=== PATIENT | male | born 1975 | race Two or more races ===

== ENCOUNTER 2025-04-28 01:15 | Emergency (ER) | payer MEDICAID, SELFPAY ==
[2025-04-28 01:16] VITALS: BMI 26.9
--- NOTE | 2025-04-28 01:23 | EKG_ITS ---
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1975 Requested By: Saurabh Hennessy Order Number: [id number] Reading MD: Saurabh Hennessy Measurements Intervals [place] Rate: 111 P: 50 NC: 156 QRS: -42 QRSD: 86 T: 31 QT: 309 QTc: 421 Interpretive Statements SINUS TACHYCARDIA POSSIBLE LEFT ATRIAL ENLARGEMENT [-0.1mV P-WAVE IN V1/V2] LOW QRS VOLTAGE IN PRECORDIAL LEADS [QRS DEFLECTION < 1.0 mV IN CHEST LEADS] INFERIOR MYOCARDIAL INFARCTION , OF INDETERMINATE AGE [40+ ms Q WAVE AND/OR ST/T ABNORMALITY IN II/aVF] Compared to ECG 04/09/2022 07:32:30 Low QRS voltage now present Myocardial infarct finding now present Sinus rhythm no longer present /store/S0/[id number].pdf
[2025-04-28 01:26] VITALS: BP 160/98; PULSE 107; RESP 18; TEMP 36.9; O2SAT 96
--- NOTE | 2025-04-28 01:42 | XR_ITS ---
Upright PA chest film on 04/28/2025 at 1:42 a.m. Comparison study 04/09/2022. CLINICAL HISTORY: 3 days of chest pain and shortness of breath FINDINGS: The heart and mediastinum and hilar regions appear normal. Both lungs are clear there is no pleural fluid seen. I do not see any abnormalities in the bony thorax. IMPRESSION: Normal chest for
--- NOTE | 2025-04-28 01:45 | PD.EDCHEST ---
ED Chest Pain RME/HPI General Chief Complaint: Chest Pain Stated Complaint: CHEST PAIN Time Seen by Provider: 04/28/25 01:42 Arrival date/time: 04/28/25 01:15 49M with history of HTN, DM, and alcohol/drug use presents to ED with 3 days of CP and SOB. Patient denies URI symptoms. Patient took some Viagra to have personal relations with . Limitations: no limitations Related Data Home Medications ?Medication ?Instructions ?Recorded ?Confirmed amlodipine 5 mg tablet 5 mg PO 1XD 01/18/22 01/18/22 atorvastatin 80 mg tablet 1 tab PO 1XD 01/18/22 01/18/22 empagliflozin 12.5 mg-metformin 1 tab PO 2XD 01/18/22 01/18/22 1,000 mg tablet (Synjardy) insulin glargine-yfgn 100 unit/mL 65 ea subcut 1XD 01/18/22 01/18/22 (3 mL) subcutaneous pen insulin lispro 100 unit/mL 20 ea subcut 3XD 01/18/22 01/18/22 subcutaneous pen (Humalog KwikPen (U-100) Insulin) olmesartan 20 mg tablet 20 mg PO 1XD 01/18/22 01/18/22 Previous Rx's ?Medication ?Instructions ?Recorded fluticasone propionate 50 50 mcg intranasal Q12H #18.2 grams 11/29/18 mcg/actuation nasal spray,suspension (Flonase Allergy Relief) albuterol sulfate 90 mcg/actuation 2 puff inhalation Q4H #6.7 grams 01/13/19 aerosol inhaler (Proventil HFA) cyclobenzaprine 5 mg tablet 5 mg PO QHSPRN PRN muscle spasm 06/27/22 #10 tabs ibuprofen 600 mg tablet 600 mg PO TID PRN pain #30 tabs 06/27/22 Allergies Allergy/AdvReac Type Severity Reaction Status Date / Time No Known Allergies Allergy Verified 04/28/25 01:22 Review of Systems Review of Systems Systems Reviewed: All systems reviewed, normal except as documented Cardiovascular Cardiovascular: Reports as per HPI, Reports chest pain and Reports dyspnea Respiratory Respiratory: Reports dyspnea Past Medical History Past Medical History CARDIAC: Positive Cardiac Disorders and Hypertension; Negative Congestive Heart Failure RESPIRATORY: Positive Asthma; Negative Chronic Obstructive Pulmonary Disease (COPD) GENITOURINARY: Negative Renal Disease ENDOCRINE: Positive Endocrine Disorders and Diabetes Mellitus Type 2; Negative Diabetes Mellitus Type 1 HEMATOLOGIC: Negative Sickle Cell Disease Family History FAMILY HISTORY: Negative Family Cancer Social History SMOKING STATUS: Current every day smoker ED Exam General Limitations: Present no limitations General appearance: Present alert and in no apparent distress Head Head exam: Present atraumatic Neck Neck exam: Present normal inspection, full ROM and trachea midline Chest Chest inspection: Present normal inspection and symmetric chest wall rise Respiratory Respiratory exam: Present normal lung sounds bilaterally Cardiovascular Cardiovascular exam: Present regular rate, normal rhythm and normal heart sounds Neurological Exam Neurological exam: Present alert and oriented X3 Psychiatric Psychiatric exam: Present normal affect and normal mood Skin Skin exam: Present warm, dry, intact and normal color Course Quality Measures none Orders Category Date Time Status EKG (ED ONLY) *Do not use* NOW Care 04/28/25 01:23 Completed EKG (ED Only) Stat Exams 04/28/25 01:23 Draft XR chest 1V portable Stat Exams 04/28/25 01:42 Taken CBC Stat Lab 04/28/25 02:11 Completed Comprehensive Metabolic Panel Stat Lab 04/28/25 02:11 Completed D-Dimer Stat Lab 04/28/25 02:11 Completed Troponin I Stat Lab 04/28/25 02:11 Completed Troponin I Stat Lab 04/28/25 05:00 Completed Aspirin Med 04/28/25 01:43 Discontinued 325 mg PO X1 ONE Insulin Regular Med 04/28/25 03:29 Discontinued 10 unit SC X1 ONE Vital Signs Vital signs: Vital Signs Temperature 98.5 F 04/28/25 01:26 Pulse Rate 107 H 04/28/25 01:26 Respiratory Rate 18 04/28/25 01:26 Blood Pressure 160/98 H 04/28/25 01:26 Pulse Oximetry (%) 96 04/28/25 01:26 Oxygen Delivery Method Room Air 04/28/25 01:26 O2 at 96% on RA and WNLs Chest Pain MDM Narrative MDM Narrative:: 49M with history of HTN, DM, and alcohol/drug use presents to ED with 3 days of CP and SOB. Patient denies URI symptoms. Patient took some Viagra to have personal relations with . Physical exam reveals clear lungs and normal WOB. RRR. Patient is afebrile, calm, and alert. EKG is NSR with non-specific ST-T wave changes, as seen in previous EKG. Wet CXR read unremarkable pending official report. Trop 2x normal. D-dimer neg. Minimal leukocytosis. CMP unremarkable except for elevated BS. Insulin given. Symptoms resolved. Pain likely anginal vs MSK-in nature. Electrical Assembly Technician given. Patient data External records reviewed:: [facility] previous records Clinical information provided by:: patient Social determinants that could affect healthcare access:: alcohol use Patient has the following chronic illnesses:: DM, HTN, alcohol/drugs How is presenting disease/condition affected by chronic disease/condition?: exacerbated by Evaluation data The following diagnostics were reviewed and interpreted by me:: lab results, radiology exam(s) and EKG tracing(s) Lab and/or radiology exams considered but not ordered:: ordered Interpretation Summary: above Medications / Prescriptions Medications or Prescriptions considered but not ordered:: ordered Medication administrations:: Medication Administration History Discontinued Medications Aspirin (Aspirin 325 Mg Tablet) 325 mg PO X1 ONE Stop: 04/28/25 01:44 Last Admin: 04/28/25 02:08 Dose: 325 mg Documented By: Insulin Human Regular (Insulin Hum Regular 1 Unit/0.01 Ml (Per Unit)) 10 unit SC X1 ONE Stop: 04/28/25 03:30 Last Admin: 04/28/25 04:30 Dose: 10 unit Documented By: ADE Co-signed By: WO above Consultations Consultation(s) initiated? (list below): No Diagnosis Chest Pain Differential Diagnosis: fracture of rib, pneumothorax, stable angina, unstable angina pectoris, atypical chest pain, st elevation myocardial infarction, costochondritis, chest pain, biliary colic and other (PE) Most likely diagnosis given after review of the tests above:: atypical chest pain Admission Indicated Admission indicated?: not indicated Admission Request Was there a request for admission?: No Disposition Plan Disposition Plan: Discharge Discharge Attestation Discharge Attestation: The patient and all family members were given an opportunity to ask questions and understood the discharge instructions. Discharge instructions specifically effects, indications for sooner follow up or return to the emergency department, and the expected course of current diagnosis. Patient condition: Stable Discharge Plan Plan Patient Disposition: HOME (Self Care) Discharge Disposition comment: Stable Prescriptions/Referrals Prescriptions/Med Rec: No Action fluticasone propionate [Flonase Allergy Relief] 50 mcg/actuation spray,suspension 50 mcg INTRANASAL Q12H Qty: 18.2 0RF Rx Instructions: administer into each nostril albuterol sulfate [Proventil HFA] 90 mcg/actuation HFA aerosol inhaler 2 puff INH Q4H Qty: 6.7 0RF atorvastatin 80 mg tablet 1 tab PO 1XD amlodipine 5 mg Tablet 5 mg PO 1XD olmesartan 20 mg Tablet 20 mg PO 1XD insulin lispro [Humalog KwikPen Insulin] 100 unit/mL insulin pen 20 ea SUBCUT 3XD Patient Comments: INJECT 10 UNITS SUBCUTANEOUSLY 3 TIMES A DAY BEFORE MEALS Rx Instructions: 15 min before meals Synjardy 12.5-1,000 mg Tablet 1 tab PO 2XD insulin glargine-yfgn 100 unit/mL (3 mL) insulin pen 65 ea SUBCUT 1XD Patient Comments: INJECT 50 UNITS SUBCUTANEOUSLY EVERY DAY Rx Instructions: at bedtime ibuprofen 600 mg tablet 600 mg PO TID PRN (Reason: pain) Qty: 30 0RF cyclobenzaprine 5 mg tablet 5 mg PO QHSPRN PRN (Reason: muscle spasm) Qty: 10 0RF Referrals: Solitario Reed MD [Primary Care Provider, Family Practice] - In 1 week Problem List Clinical Impression: Atypical chest pain Patient/Caregiver Discharge Instructions Education Materials: ED Chest Pain, Uncertain Cause Additional Instructions: Please follow-up with PCP within 24-48 hours and return immediately if symptoms worsen. Print Language: Belarusian Stand Alone Forms: Patient Portal Info Letter PA/FINA Supervising Physician GILES/FINA Supervising Physician: Dr. Benitez
[2025-04-28 02:40] LABS: Basophils # (Auto) 0.0 Thou/mm3 (0.0-0.2); Basophils % (Auto) 0 % (0-2.5); Eosinophils # (Auto) 0.2 Thou/mm3 (0.0-0.5); Eosinophils % (Auto) 2 % (0-10); Hematocrit 50.5 % (41.0-53.0); Hemoglobin 17.8 g/dL (13.5-16.0); Immature Granulocytes Auto 0.07 Thou/mm3 (0.00-0.00); Lymphocytes # (Auto) 3.0 Thou/mm3 (1.0-4.8); Lymphocytes % (Auto) 25 % (10-50); Mean Corpuscular HGB Conc 35.2 g/dl (31.0-37.0); Mean Corpuscular Hemoglobin 28.6 pg (25.0-35.0); Mean Corpuscular Volume 81 fL (80-100); Monocytes # (Auto) 0.9 Thou/mm3 (0.0-0.8); Monocytes % (Auto) 8 % (0-12); Neutrophils # (Auto) 7.9 Thou/mm3 (1.8-7.7); Neutrophils % (Auto) 65 % (37-80); Nucleated Red Blood Cell # 0.00 Thou/mm3 (0.00-0.00); Nucleated Red Blood Cell % 0 /100 WBC (0); Platelet Count 261 Thou/mm3 (140-440); RDW Standard Deviation 34.8 fL (35.1-43.9); Red Blood Count 6.23 Miln/mm3 (4.50-5.90); White Blood Count 12.1 Thou/mm3 (3.8-10.6)
[2025-04-28 03:11] LABS: D-Dimer < 250 ng/mL (<600)
[2025-04-28 03:13] LABS: Alanine Aminotransferase 56 U/L (10-49); Albumin, Serum 5.0 gm/dL (3.5-5.0); Albumin/Globulin Ratio 2.0 (1.2-2.2); Alkaline Phosphatase 148 U/L (46-116); Anion Gap 12 (7-16); Aspartate Amino Transferase 49 U/L (0-34); BUN/Creatinine Ratio 13 Ratio (12-20); Bilirubin,Total 0.7 mg/dL (0.3-1.2); Blood Urea Nitrogen 14 mg/dL (9-23); Calcium 9.9 mg/dL (8.3-10.6); Calcium (Corrected) 9.9 mg/dL (8.5-10.1); Carbon Dioxide 23.6 mMol/L (20.0-31.0); Chloride 102 mMol/L (98-107); Creatinine (Component) 1.1 mg/dL (0.6-1.3); Estimated Creatinine Clearance 84.8 mL/min (>60); Globulin 2.5 gm/dL (2.3-3.5); Osmolality,Calculated 293 (275-295); Potassium 4.2 mMol/L (3.4-5.1); Sodium 138 mMol/L (136-145); Total Protein 7.5 gm/dL (5.7-8.2); Troponin I < 0.020 ng/mL (0.0-0.045); eGFR > 60 See Note
[2025-04-28 03:19] LABS: Glucose 408 mg/dL (74-106)
[2025-04-28] MEDS: INSULIN HUM REGULAR 1 UNIT/0.01 ML (PER UNIT) 10 UNIT SC (04:30)
[2025-04-28 05:41] LABS: Troponin I < 0.020 ng/mL (0.0-0.045)
[2025-04-28 05:47] VITALS: BP 126/85; PULSE 95; RESP 18; TEMP 36.5; O2SAT 96
== END 2025-04-28 05:59 | disposition home or self-care (01) ==
PROVIDERS: Physician Assistant; Emergency Provider Emergency Medicine; PCP Family Medicine
DX: R07.89 Other chest pain (principal); R00.0 Tachycardia, unspecified; I10 Essential (primary) hypertension; F17.210 Nicotine dependence, cigarettes, uncomplicated
CPT/HCPCS: 36415; 71045; 80053; 84484; 85025; 85379; 93005; 99283; J1815; A9270